=== PATIENT | female | born 1945 | race Caucasian/White ===

== ENCOUNTER 2020-02-11 14:25 | Emergency (ER) | payer MEDICARE, OTHER ==
[~2020-02-11] VITALS: Ht 165.1 cm; Wt 115.2 kg
[2020-02-11] MEDS ORDERED: EUTHYROX50 MCG (15:24)
[2020-02-11] MEDS ORDERED: METO25ER (15:24)
[2020-02-11] MEDS ORDERED: CLIMARA1 EACH (15:24)
[2020-02-11] MEDS ORDERED: OMEP20ER (15:24)
[2020-02-11] MEDS ORDERED: GABA100 (15:25)
[2020-02-11] MEDS ORDERED: SPIR25 (15:25)
[2020-02-11] MEDS ORDERED: ATOR20 (15:25)
[2020-02-11] MEDS ORDERED: VENL25 (15:25)
[2020-02-11] MEDS ORDERED: TIZA4 (15:25)
[2020-02-11] MEDS ORDERED: MICONAZOLE (15:26)
[2020-02-11] MEDS ORDERED: Norco 5-325 Ta1 EACH (15:26)
== END 2020-02-11 18:13 | disposition home or self-care (01) ==
LOC: ER 14:25
DX: M54.5 Low back pain (principal); Z88.1 Allergy status to other antibiotic agents; W19.XXXA Unspecified fall, initial encounter
CPT/HCPCS: 72100; 73502; 96372-59; 96374; 96375; 96376; 99283-25; J1885; J2270; J2405

== ENCOUNTER 2020-08-18 13:06 | Emergency (ER) | payer MEDICARE, OTHER ==
[~2020-08-18] VITALS: Ht 165.1 cm; Wt 108.9 kg
[~2020-08-18 13:06] MED LIST: ATOR20; CLIMARA1 EACH; EUTHYROX50 MCG; GABA100; METO25ER; MICONAZOLE; Norco 5-325 Ta1 EACH; OMEP20ER; SPIR25; TIZA4; VENL25
[2020-08-18] MEDS ORDERED: SULTRIDS PO (13:28)
[2020-08-18 14:08] LABS: BASOPHILS ABSOLUTE AUTO 0.04 K/mm3 (0.00-0.23); BASOPHILS PERCENT AUTO 1 % (0-2); EOSINOPHILS PERCENT AUTO 3 % (0-6); Hematocrit 28.1 % (33.0-51.0); Hemoglobin 8.7 g/dL (11.5-16.0); IMMATURE GRAN ABSOLUTE AUTO 0.03 K/mm3 (0.00-0.10); IMMATURE GRAN PERCENT AUTO 0 % (0-1); LYMPHOCYTES ABSOLUTE AUTO 0.58 K/mm3 (0.84-5.20); LYMPHOCYTES PERCENT AUTO 8 % (21-46); MONOCYTES ABSOLUTE AUTO 0.73 K/mm3 (0.16-1.47); MONOCYTES PERCENT AUTO 10 % (4-13); Mean Corpuscular HGB 29.4 pg (26.0-34.0); Mean Corpuscular Volume 95 fL (80-100); Mean Platelet Volume 9.2 fL (9.1-12.4); NEUTROPHILS ABSOLUTE AUTO 5.67 K/mm3 (1.96-9.15); NEUTROPHILS PERCENT AUTO 78 % (41-73); Platelet Count 217 K/mm3 (150-400); RDW Coefficient Variation 14.7 % (11.7-14.2); RDW Standard Deviation 50.8 fL (35.1-46.3); Red Blood Cell Count 2.96 M/mm3 (3.80-5.20); White Blood Cell Count 7.25 K/mm3 (4.00-11.30)
[2020-08-18 14:30] LABS: Alanine Aminotransfer (ALT/SGP 19 U/L (12-78); Albumin/Globulin Ratio 0.9 (0.8-1.8); Alk Phos 70 U/L (50-136); Anion Gap 10 mmol/L (6-16); Aspartate Aminotrans (AST/SGOT 15 U/L (12-37); Bilirubin, Total 0.2 mg/dL (0.1-1.0); Blood Urea Nitrogen 19 mg/dL (8-24); CO2, Blood 22 mmol/L (21-32); Calcium, Blood 8.8 mg/dL (8.5-10.1); Chloride, Blood 109 mmol/L (98-108); Creatinine, Blood 0.79 mg/dL (0.40-1.00); Globulin, Blood 3.2 g/dL (2.2-4.0); Glomerular Filtration Rate >60 (60-); Glucose, Blood 102 mg/dL (70-99); Potassium, Blood 3.6 mmol/L (3.5-5.5); Sodium, Blood 141 mmol/L (136-145); Total Protein, Blood 6.2 g/dL (6.4-8.2); Troponin I 0.027 ng/mL (0.000-0.040)
== END 2020-08-18 16:40 | disposition home or self-care (01) ==
LOC: ER 13:06
PROVIDERS: Emergency Medicine
DX: T40.2X1A Poisoning by other opioids, accidental (unintentional), initial encounter (principal); R55 Syncope and collapse; G89.29 Other chronic pain; Z88.1 Allergy status to other antibiotic agents; Z79.899 Other long term (current) drug therapy
CPT/HCPCS: 36415; 70450; 80053; 82550; 83880; 84484; 85025; 93005; 93010; 99285-25

== ENCOUNTER 2021-05-11 06:23 | Day surgery (SDC) | payer MEDICARE, OTHER ==
[~2021-05-11 06:23] MED LIST changes: +SULTRIDS PO
== END 2021-05-11 22:50 | disposition home or self-care (01) ==
LOC: WOUND 06:23
DX: S21.209A Unspecified open wound of unspecified back wall of thorax without penetration into thoracic cavity, initial encounter (principal); S31.000A Unspecified open wound of lower back and pelvis without penetration into retroperitoneum, initial encounter; X58.XXXA Exposure to other specified factors, initial encounter; G06.0 Intracranial abscess and granuloma; Z88.5 Allergy status to narcotic agent; Z88.8 Allergy status to other drugs, medicaments and biological substances; Z88.1 Allergy status to other antibiotic agents; Z91.040 Latex allergy status
CPT/HCPCS: A9270; G0463

== ENCOUNTER 2021-05-18 06:11 | Day surgery (SDC) | payer MEDICARE, OTHER | END 2021-05-18 23:11 | disposition home or self-care (01) | LOC: WOUND 06:11 | DX: T81.32XD Disruption of internal operation (surgical) wound, not elsewhere classified, subsequent encounter (principal); T81.31XA Disruption of external operation (surgical) wound, not elsewhere classified, initial encounter; S21.209D Unspecified open wound of unspecified back wall of thorax without penetration into thoracic cavity, subsequent encounter; S31.000D Unspecified open wound of lower back and pelvis without penetration into retroperitoneum, subsequent encounter; X58.XXXD Exposure to other specified factors, subsequent encounter; L08.9 Local infection of the skin and subcutaneous tissue, unspecified | CPT/HCPCS: A9270 ==

== ENCOUNTER 2021-06-01 01:44 | Day surgery (SDC) | payer MEDICARE, OTHER | END 2021-06-01 23:10 | disposition home or self-care (01) | LOC: WOUND 01:44 | DX: T81.31XA Disruption of external operation (surgical) wound, not elsewhere classified, initial encounter (principal); T81.32XD Disruption of internal operation (surgical) wound, not elsewhere classified, subsequent encounter; L08.9 Local infection of the skin and subcutaneous tissue, unspecified; S21.209D Unspecified open wound of unspecified back wall of thorax without penetration into thoracic cavity, subsequent encounter; S31.000D Unspecified open wound of lower back and pelvis without penetration into retroperitoneum, subsequent encounter; X58.XXXD Exposure to other specified factors, subsequent encounter | CPT/HCPCS: A9270; G0463 ==

== ENCOUNTER 2021-06-15 04:15 | Day surgery (SDC) | payer MEDICARE, OTHER | END 2021-06-15 22:47 | disposition home or self-care (01) | LOC: WOUND 04:15 | DX: I87.313 Chronic venous hypertension (idiopathic) with ulcer of bilateral lower extremity (principal); L97.812 Non-pressure chronic ulcer of other part of right lower leg with fat layer exposed; L97.822 Non-pressure chronic ulcer of other part of left lower leg with fat layer exposed; T81.31XA Disruption of external operation (surgical) wound, not elsewhere classified, initial encounter; T81.31XD Disruption of external operation (surgical) wound, not elsewhere classified, subsequent encounter; S21.209D Unspecified open wound of unspecified back wall of thorax without penetration into thoracic cavity, subsequent encounter; S31.000D Unspecified open wound of lower back and pelvis without penetration into retroperitoneum, subsequent encounter; X58.XXXD Exposure to other specified factors, subsequent encounter; L08.9 Local infection of the skin and subcutaneous tissue, unspecified | CPT/HCPCS: A9270 ==

== ENCOUNTER 2021-06-17 02:14 | Day surgery (SDC) | payer MEDICARE, OTHER | END 2021-06-17 23:09 | disposition home or self-care (01) | LOC: WOUND 02:14 | DX: L97.822 Non-pressure chronic ulcer of other part of left lower leg with fat layer exposed (principal); L97.819 Non-pressure chronic ulcer of other part of right lower leg with unspecified severity; S21.201A Unspecified open wound of right back wall of thorax without penetration into thoracic cavity, initial encounter; X58.XXXA Exposure to other specified factors, initial encounter ==

== ENCOUNTER 2021-06-22 04:19 | Day surgery (SDC) | payer MEDICARE, OTHER | END 2021-06-22 23:13 | disposition home or self-care (01) | LOC: WOUND 04:19 | DX: L97.812 Non-pressure chronic ulcer of other part of right lower leg with fat layer exposed (principal); L97.822 Non-pressure chronic ulcer of other part of left lower leg with fat layer exposed; I87.313 Chronic venous hypertension (idiopathic) with ulcer of bilateral lower extremity; T81.32XD Disruption of internal operation (surgical) wound, not elsewhere classified, subsequent encounter; T81.31XA Disruption of external operation (surgical) wound, not elsewhere classified, initial encounter; S21.209D Unspecified open wound of unspecified back wall of thorax without penetration into thoracic cavity, subsequent encounter; S31.000D Unspecified open wound of lower back and pelvis without penetration into retroperitoneum, subsequent encounter; X58.XXXD Exposure to other specified factors, subsequent encounter; L08.9 Local infection of the skin and subcutaneous tissue, unspecified | CPT/HCPCS: A9270 ==

== ENCOUNTER 2021-06-29 04:36 | Day surgery (SDC) | payer MEDICARE, OTHER | END 2021-06-29 22:48 | disposition home or self-care (01) | LOC: WOUND 04:36 | DX: L97.812 Non-pressure chronic ulcer of other part of right lower leg with fat layer exposed (principal); L97.822 Non-pressure chronic ulcer of other part of left lower leg with fat layer exposed; I87.313 Chronic venous hypertension (idiopathic) with ulcer of bilateral lower extremity; T81.32XD Disruption of internal operation (surgical) wound, not elsewhere classified, subsequent encounter; T81.31XA Disruption of external operation (surgical) wound, not elsewhere classified, initial encounter; S21.209D Unspecified open wound of unspecified back wall of thorax without penetration into thoracic cavity, subsequent encounter; S31.000D Unspecified open wound of lower back and pelvis without penetration into retroperitoneum, subsequent encounter; X58.XXXD Exposure to other specified factors, subsequent encounter; L08.9 Local infection of the skin and subcutaneous tissue, unspecified | CPT/HCPCS: A9270; G0463 ==

== ENCOUNTER 2021-07-02 10:11 | Emergency (ER) | payer MEDICARE, OTHER ==
[~2021-07-02] VITALS: Ht 165.1 cm; Wt 99.3 kg
== END 2021-07-02 12:27 | disposition home or self-care (01) ==
LOC: ER 10:11
DX: S00.83XA Contusion of other part of head, initial encounter (principal); G40.909 Epilepsy, unspecified, not intractable, without status epilepticus; Z88.5 Allergy status to narcotic agent; Z88.8 Allergy status to other drugs, medicaments and biological substances; Z88.1 Allergy status to other antibiotic agents; W19.XXXA Unspecified fall, initial encounter
CPT/HCPCS: 70450; 99284-25

== ENCOUNTER 2021-09-14 02:47 | Day surgery (SDC) | payer MEDICARE, OTHER | END 2021-09-14 23:30 | disposition home or self-care (01) | LOC: WOUND 02:47 | DX: I87.312 Chronic venous hypertension (idiopathic) with ulcer of left lower extremity (principal); L97.822 Non-pressure chronic ulcer of other part of left lower leg with fat layer exposed; I87.2 Venous insufficiency (chronic) (peripheral); I73.9 Peripheral vascular disease, unspecified; I10 Essential (primary) hypertension; G47.30 Sleep apnea, unspecified; Z98.1 Arthrodesis status; Z88.8 Allergy status to other drugs, medicaments and biological substances; Z88.1 Allergy status to other antibiotic agents; Z88.5 Allergy status to narcotic agent; Z91.040 Latex allergy status; Z91.048 Other nonmedicinal substance allergy status; Z96.651 Presence of right artificial knee joint | CPT/HCPCS: A9270; G0463 ==

== ENCOUNTER 2021-09-18 00:51 | Day surgery (SDC) | payer MEDICARE, OTHER | END 2021-09-18 22:52 | disposition home or self-care (01) | LOC: WOUND 00:51 | DX: L97.822 Non-pressure chronic ulcer of other part of left lower leg with fat layer exposed (principal) ==

== ENCOUNTER 2021-09-25 16:56 | Emergency (ER) | payer MEDICARE, OTHER ==
[~2021-09-25] VITALS: Ht 165.1 cm; Wt 99.8 kg
[2021-09-25] MEDS ORDERED: DIAZ5 PO (22:09)
== END 2021-09-25 22:10 | disposition home or self-care (01) ==
LOC: ER 16:56
DX: M79.652 Pain in left thigh (principal)
CPT/HCPCS: 93926; 93971; 96374; 99284-25; A9270; J1885

== ENCOUNTER 2021-09-28 02:28 | Day surgery (SDC) | payer MEDICARE, OTHER ==
[~2021-09-28 02:28] MED LIST changes: +DIAZ5 PO
== END 2021-09-28 22:40 | disposition home or self-care (01) ==
LOC: WOUND
DX: I87.312 Chronic venous hypertension (idiopathic) with ulcer of left lower extremity (principal); L97.822 Non-pressure chronic ulcer of other part of left lower leg with fat layer exposed; I87.2 Venous insufficiency (chronic) (peripheral); I73.9 Peripheral vascular disease, unspecified
CPT/HCPCS: A9270

== ENCOUNTER 2021-10-05 01:28 | Day surgery (SDC) | payer MEDICARE, OTHER | END 2021-10-05 23:36 | disposition home or self-care (01) | LOC: WOUND 01:28 | DX: I87.312 Chronic venous hypertension (idiopathic) with ulcer of left lower extremity (principal); L97.822 Non-pressure chronic ulcer of other part of left lower leg with fat layer exposed; I87.2 Venous insufficiency (chronic) (peripheral); I73.9 Peripheral vascular disease, unspecified | CPT/HCPCS: A9270 ==

== ENCOUNTER 2021-10-12 02:28 | Day surgery (SDC) | payer MEDICARE, OTHER | END 2021-10-12 23:16 | disposition home or self-care (01) | LOC: WOUND 02:28 | DX: I87.312 Chronic venous hypertension (idiopathic) with ulcer of left lower extremity (principal); L97.822 Non-pressure chronic ulcer of other part of left lower leg with fat layer exposed; I87.2 Venous insufficiency (chronic) (peripheral); I73.9 Peripheral vascular disease, unspecified; Z98.1 Arthrodesis status | CPT/HCPCS: A9270 ==

== ENCOUNTER 2021-10-19 01:21 | Day surgery (SDC) | payer MEDICARE, OTHER | END 2021-10-19 23:36 | disposition home or self-care (01) | LOC: WOUND 01:21 | DX: L97.822 Non-pressure chronic ulcer of other part of left lower leg with fat layer exposed (principal); L97.819 Non-pressure chronic ulcer of other part of right lower leg with unspecified severity; I87.312 Chronic venous hypertension (idiopathic) with ulcer of left lower extremity; I87.2 Venous insufficiency (chronic) (peripheral); I73.9 Peripheral vascular disease, unspecified | CPT/HCPCS: A9270 ==

== ENCOUNTER 2021-10-21 08:30 | Day surgery (SDC) | payer MEDICARE, OTHER | END 2021-10-21 23:19 | disposition home or self-care (01) | LOC: WOUND 08:30 | DX: I87.312 Chronic venous hypertension (idiopathic) with ulcer of left lower extremity (principal); L97.822 Non-pressure chronic ulcer of other part of left lower leg with fat layer exposed; I87.2 Venous insufficiency (chronic) (peripheral); I73.9 Peripheral vascular disease, unspecified ==

== ENCOUNTER 2021-10-26 08:00 | Day surgery (SDC) | payer MEDICARE, OTHER | END 2021-10-26 23:59 | disposition home or self-care (01) | LOC: WOUND 08:00 | DX: L97.822 Non-pressure chronic ulcer of other part of left lower leg with fat layer exposed (principal); L97.812 Non-pressure chronic ulcer of other part of right lower leg with fat layer exposed; I87.312 Chronic venous hypertension (idiopathic) with ulcer of left lower extremity; I87.2 Venous insufficiency (chronic) (peripheral); I73.9 Peripheral vascular disease, unspecified ==

== ENCOUNTER 2021-11-02 02:02 | Day surgery (SDC) | payer MEDICARE, OTHER | END 2021-11-02 22:47 | disposition home or self-care (01) | LOC: WOUND 02:02 | DX: I87.312 Chronic venous hypertension (idiopathic) with ulcer of left lower extremity (principal); L97.822 Non-pressure chronic ulcer of other part of left lower leg with fat layer exposed; I73.9 Peripheral vascular disease, unspecified; I87.2 Venous insufficiency (chronic) (peripheral) ==

== ENCOUNTER 2021-11-09 01:16 | Day surgery (SDC) | payer MEDICARE, OTHER | END 2021-11-09 23:06 | disposition home or self-care (01) | LOC: WOUND 01:16 | DX: I87.312 Chronic venous hypertension (idiopathic) with ulcer of left lower extremity (principal); L97.822 Non-pressure chronic ulcer of other part of left lower leg with fat layer exposed; I73.9 Peripheral vascular disease, unspecified; I87.2 Venous insufficiency (chronic) (peripheral) | CPT/HCPCS: A9270 ==

== ENCOUNTER 2021-11-16 01:33 | Day surgery (SDC) | payer MEDICARE, OTHER | END 2021-11-16 22:53 | disposition home or self-care (01) | LOC: WOUND 01:33 | DX: I87.312 Chronic venous hypertension (idiopathic) with ulcer of left lower extremity (principal); L97.822 Non-pressure chronic ulcer of other part of left lower leg with fat layer exposed; I87.2 Venous insufficiency (chronic) (peripheral); I73.9 Peripheral vascular disease, unspecified; Z98.1 Arthrodesis status | CPT/HCPCS: A9270; G0463 ==

== ENCOUNTER 2021-11-23 01:05 | Day surgery (SDC) | payer MEDICARE, OTHER | END 2021-11-23 23:23 | disposition home or self-care (01) | LOC: WOUND 01:05 | DX: I87.312 Chronic venous hypertension (idiopathic) with ulcer of left lower extremity (principal); L97.822 Non-pressure chronic ulcer of other part of left lower leg with fat layer exposed; I87.2 Venous insufficiency (chronic) (peripheral); Z98.1 Arthrodesis status | CPT/HCPCS: A9270 ==

== ENCOUNTER 2021-11-25 16:05 | Day surgery (SDC) | payer MEDICARE, OTHER | END 2021-11-25 23:11 | disposition home or self-care (01) | LOC: WOUND 16:05 | DX: I87.312 Chronic venous hypertension (idiopathic) with ulcer of left lower extremity (principal); L97.822 Non-pressure chronic ulcer of other part of left lower leg with fat layer exposed; I87.2 Venous insufficiency (chronic) (peripheral); I73.9 Peripheral vascular disease, unspecified ==

== ENCOUNTER 2021-11-30 01:23 | Day surgery (SDC) | payer MEDICARE, OTHER | END 2021-11-30 22:43 | disposition home or self-care (01) | LOC: WOUND 01:23 | DX: I87.312 Chronic venous hypertension (idiopathic) with ulcer of left lower extremity (principal); L97.822 Non-pressure chronic ulcer of other part of left lower leg with fat layer exposed; I87.2 Venous insufficiency (chronic) (peripheral); I73.9 Peripheral vascular disease, unspecified | CPT/HCPCS: A9270 ==

== ENCOUNTER 2021-12-07 03:17 | Day surgery (SDC) | payer MEDICARE, OTHER | END 2021-12-07 23:13 | disposition home or self-care (01) | LOC: WOUND 03:17 | DX: I87.312 Chronic venous hypertension (idiopathic) with ulcer of left lower extremity (principal); L97.822 Non-pressure chronic ulcer of other part of left lower leg with fat layer exposed; I87.2 Venous insufficiency (chronic) (peripheral) | CPT/HCPCS: A9270 ==

== ENCOUNTER 2021-12-21 01:23 | Day surgery (SDC) | payer MEDICARE, OTHER | END 2021-12-21 23:21 | disposition home or self-care (01) | LOC: WOUND 01:23 | DX: I87.312 Chronic venous hypertension (idiopathic) with ulcer of left lower extremity (principal); L97.822 Non-pressure chronic ulcer of other part of left lower leg with fat layer exposed; I87.2 Venous insufficiency (chronic) (peripheral); I73.9 Peripheral vascular disease, unspecified | CPT/HCPCS: A9270; Q4133 ==

== ENCOUNTER 2021-12-28 00:48 | Day surgery (SDC) | payer MEDICARE, OTHER | END 2021-12-28 23:37 | disposition home or self-care (01) | LOC: WOUND 00:48 | DX: I87.312 Chronic venous hypertension (idiopathic) with ulcer of left lower extremity (principal); L97.822 Non-pressure chronic ulcer of other part of left lower leg with fat layer exposed; I87.2 Venous insufficiency (chronic) (peripheral); I73.9 Peripheral vascular disease, unspecified | CPT/HCPCS: A9270; Q4133 ==

== ENCOUNTER 2022-01-04 08:00 | Day surgery (SDC) | payer MEDICARE, OTHER | END 2022-01-04 23:59 | disposition home or self-care (01) | LOC: WOUND 08:00 | DX: I87.312 Chronic venous hypertension (idiopathic) with ulcer of left lower extremity (principal); L97.822 Non-pressure chronic ulcer of other part of left lower leg with fat layer exposed; I87.2 Venous insufficiency (chronic) (peripheral); I73.9 Peripheral vascular disease, unspecified | CPT/HCPCS: A9270; Q4133 ==

== ENCOUNTER 2022-01-11 02:42 | Day surgery (SDC) | payer MEDICARE, OTHER | END 2022-01-11 23:27 | disposition home or self-care (01) | LOC: WOUND 02:42 | DX: I87.312 Chronic venous hypertension (idiopathic) with ulcer of left lower extremity (principal); L97.822 Non-pressure chronic ulcer of other part of left lower leg with fat layer exposed; F17.209 Nicotine dependence, unspecified, with unspecified nicotine-induced disorders; I87.2 Venous insufficiency (chronic) (peripheral) | CPT/HCPCS: A9270; Q4133 ==

== ENCOUNTER 2022-01-15 03:40 | Day surgery (SDC) | payer MEDICARE, OTHER | END 2022-01-15 23:02 | disposition home or self-care (01) | LOC: WOUND 03:40 | DX: I87.312 Chronic venous hypertension (idiopathic) with ulcer of left lower extremity (principal); L97.822 Non-pressure chronic ulcer of other part of left lower leg with fat layer exposed; I87.2 Venous insufficiency (chronic) (peripheral); I73.9 Peripheral vascular disease, unspecified; F17.209 Nicotine dependence, unspecified, with unspecified nicotine-induced disorders ==

== ENCOUNTER 2022-01-20 08:00 | Day surgery (SDC) | payer MEDICARE, OTHER | END 2022-01-20 23:59 | disposition home or self-care (01) | LOC: WOUND 08:00 | DX: I87.312 Chronic venous hypertension (idiopathic) with ulcer of left lower extremity (principal); L97.822 Non-pressure chronic ulcer of other part of left lower leg with fat layer exposed; I87.2 Venous insufficiency (chronic) (peripheral); F17.209 Nicotine dependence, unspecified, with unspecified nicotine-induced disorders | CPT/HCPCS: Q4133 ==

== ENCOUNTER 2022-01-26 05:16 | Day surgery (SDC) | payer MEDICARE, OTHER | END 2022-01-26 23:56 | disposition home or self-care (01) | LOC: WOUND 05:16 | DX: I87.312 Chronic venous hypertension (idiopathic) with ulcer of left lower extremity (principal); L97.822 Non-pressure chronic ulcer of other part of left lower leg with fat layer exposed; I87.2 Venous insufficiency (chronic) (peripheral); I73.9 Peripheral vascular disease, unspecified; F17.209 Nicotine dependence, unspecified, with unspecified nicotine-induced disorders; Z98.1 Arthrodesis status | CPT/HCPCS: A9270; Q4133 ==

== ENCOUNTER 2022-02-01 07:17 | Day surgery (SDC) | payer MEDICARE, OTHER | END 2022-02-01 23:39 | disposition home or self-care (01) | LOC: WOUND 07:17 | DX: I87.312 Chronic venous hypertension (idiopathic) with ulcer of left lower extremity (principal); L97.822 Non-pressure chronic ulcer of other part of left lower leg with fat layer exposed; I87.2 Venous insufficiency (chronic) (peripheral); I73.9 Peripheral vascular disease, unspecified | CPT/HCPCS: A9270; Q4133 ==

== ENCOUNTER 2022-02-08 05:38 | Day surgery (SDC) | payer MEDICARE, OTHER | END 2022-02-08 23:26 | disposition home or self-care (01) | LOC: WOUND 05:38 | DX: I87.312 Chronic venous hypertension (idiopathic) with ulcer of left lower extremity (principal); L97.822 Non-pressure chronic ulcer of other part of left lower leg with fat layer exposed; I87.2 Venous insufficiency (chronic) (peripheral); I73.9 Peripheral vascular disease, unspecified | CPT/HCPCS: A9270 ==

== ENCOUNTER 2022-02-15 02:10 | Day surgery (SDC) | payer MEDICARE, OTHER | END 2022-02-15 23:11 | disposition home or self-care (01) | LOC: WOUND 02:10 | DX: I87.312 Chronic venous hypertension (idiopathic) with ulcer of left lower extremity (principal); L97.822 Non-pressure chronic ulcer of other part of left lower leg with fat layer exposed; I87.2 Venous insufficiency (chronic) (peripheral); Z98.1 Arthrodesis status; G47.30 Sleep apnea, unspecified; I10 Essential (primary) hypertension | CPT/HCPCS: A9270 ==

== ENCOUNTER 2022-02-22 01:43 | Day surgery (SDC) | payer MEDICARE, OTHER | END 2022-02-22 23:43 | disposition home or self-care (01) | LOC: WOUND 01:43 | DX: I87.312 Chronic venous hypertension (idiopathic) with ulcer of left lower extremity (principal); L97.822 Non-pressure chronic ulcer of other part of left lower leg with fat layer exposed; I87.2 Venous insufficiency (chronic) (peripheral); I73.9 Peripheral vascular disease, unspecified | CPT/HCPCS: A9270 ==

== ENCOUNTER 2022-02-24 02:02 | Day surgery (SDC) | payer MEDICARE, OTHER | END 2022-02-24 23:01 | disposition home or self-care (01) | LOC: WOUND 02:02 | DX: S81.802A Unspecified open wound, left lower leg, initial encounter (principal); X58.XXXA Exposure to other specified factors, initial encounter ==

== ENCOUNTER 2022-02-28 04:05 | Emergency (ER) | payer MEDICARE, OTHER ==
[~2022-02-28] VITALS: Ht 165.1 cm; Wt 95.2 kg
== END 2022-02-28 12:28 | disposition home or self-care (01) ==
LOC: ER 04:05
DX: M84.48XA Pathological fracture, other site, initial encounter for fracture (principal); S30.0XXA Contusion of lower back and pelvis, initial encounter; W05.0XXA Fall from non-moving wheelchair, initial encounter; Z87.891 Personal history of nicotine dependence; Z98.1 Arthrodesis status; Z79.899 Other long term (current) drug therapy
CPT/HCPCS: 70450; 72125; 72170; A9270

== ENCOUNTER 2022-03-01 03:49 | Day surgery (SDC) | payer MEDICARE, OTHER | END 2022-03-01 22:56 | disposition home or self-care (01) | LOC: WOUND 03:49 | DX: I87.312 Chronic venous hypertension (idiopathic) with ulcer of left lower extremity (principal); L97.822 Non-pressure chronic ulcer of other part of left lower leg with fat layer exposed; I87.2 Venous insufficiency (chronic) (peripheral); I73.9 Peripheral vascular disease, unspecified | CPT/HCPCS: A9270 ==